=== PATIENT | female | born 1940 | race Caucasian/White ===

== ENCOUNTER 2017-04-22 18:29 | Emergency (ER) | payer OTHER ==
--- NOTE | 2017-04-22 18:52 | EDPHY ---
H & P Source: Patient Exam Limitations: No limitations - Personal History Current Tetanus/Diphtheria Vaccine: Unsure - Family History Significant Family History: No pertinent family hx - Social History Smoking Status: Never smoked Time Seen by Provider: 04/22/17 18:44 HPI/ROS: CHIEF COMPLAINT: Mechanical fall, chin laceration, skin tear on dorsum of left hand HISTORY OF PRESENT ILLNESS: The patient presents to the ED for evaluation of a chin laceration and skin tear on the dorsum of her left hand following a mechanical fall. The patient tripped over a obstruction in a sidewalk. The patient fell landing on her chin. She did not strike her head or lose consciousness. The patient is not anticoagulated. The patient has no complaints of neck pain, chest pain or significant extremity pain. The patient reports a past medical history significant for hypertension and diabetes. The patient denies any antecedent chest pain or shortness of breath. She has no complaints of focal numbness or weakness. REVIEW OF SYSTEMS: A comprehensive 10 point review of systems is otherwise negative aside from elements mentioned in the history of present illness. ([place] Claude Vale) - Medical/Surgical History PMH: Past medical history: Hypertension, diabetes (Jean Claude Vale) - Physical Exam Exam: General Appearance: Alert, no distress Head: 1.5 cm chin laceration noted Eyes: Pupils equal, round, reactive ENT, Mouth: No hemotympanum, no oral trauma Neck: Nontender, trachea midline Respiratory: No chest wall tender, subcutaneous air, lungs clear bilaterally Cardiovascular: Regular rate and rhythm Abdomen: Abdomen is soft and nontender, pelvis stable Skin: Superficial skin tear dorsum of left hand Back: No midline T/L/S pain Extremities: Nontender, full range of motion Neurological: A&Ox3, normal motor function, normal sensory exam (Jean Claude Vale) Constitutional: Initial Vital Signs Temperature (C) 36.8 C 04/22/17 18:50 Heart Rate 83 04/22/17 18:50 Respiratory Rate 16 04/22/17 18:50 Blood Pressure 158/77 H 04/22/17 18:50 O2 Sat (%) 92 04/22/17 18:50 O2 Delivery Mode Room Air Allergies/Adverse Reactions: No Known Allergies Allergy (Unverified 04/22/17 18:43) Home Medications: Medication Instructions Recorded Smith Chewable Aspirin 04/22/17 Januvia 50 mg 04/22/17 Lisinopril 04/22/17 Simvastatin 04/22/17 Zolpidem Tartrate 04/22/17 Medical Decision Making Procedures: Procedure: Laceration repair with tissue adhesive Verbal consent was obtained from the patient. The chin laceration was scrubbed and explored to its base with a gloved finger. No foreign body seen, no foreign bodies palpated. There were no deep structures involved. The wound was repaired with tissue adhesive. The procedure was performed by myself. Patient has been informed that scarring will occur, although every effort has been made to minimize this. ([place]) ED Course/Re-evaluation: The patient presents to the ED after mechanical fall. She arrives with a GCS of 15. I have cleared her cervical spine via nexus criteria. She has injuries isolated to a chin laceration and skin tear on her hand. (Jean Claude Vale) Departure - Departure Disposition: Home, Routine, Self-Care Clinical Impression: Chin laceration, Skin tear of left upper extremity Condition: Good Instructions: Skin Adhesive Care (ED) Additional Instructions: 1. Tylenol and ibuprofen as needed for pain. 2. Return to the ED for any worsening pain, the development of a headache, neck pain, numbness, weakness or other concerns. 3. Please follow up with your primary care provider as needed.
[2017-04-22 18:54] VITALS: TEMP 98.2; O2SAT 92
[2017-04-22] MEDS ORDERED: SKIN ADHESIVE (DERMABOND) 1 EACH TP ONE (19:15)
[2017-04-22] MEDS ORDERED: TDAP ADULT 0.5 ML INJ (BOOSTRIX) IM ONE (19:45)
[2017-04-22 20:00] VITALS: BP 132/78; PULSE 78; RESP 18
== END 2017-04-22 20:01 | disposition home or self-care (01) ==
PROC: 0HQ1XZZ Repair Face Skin, External Approach (ICD-10-PCS; principal; 2017-04-22)
DX: S01.81XA Laceration without foreign body of other part of head, initial encounter (principal); S41.112A Laceration without foreign body of left upper arm, initial encounter; I10 Essential (primary) hypertension; E11.9 Type 2 diabetes mellitus without complications; Z23 Encounter for immunization; W01.0XXA Fall on same level from slipping, tripping and stumbling without subsequent striking against object, initial encounter